=== PATIENT | female | born 1965 | race Two or more races ===

== ENCOUNTER 2019-10-06 10:31 | Day surgery (SDC) | payer OTHER ==
[2019-10-02 14:41] LABS: Basophils # (auto) 0 10 ^3/uL (0-0.2); Basophils % (auto) 0.4 % (0.0-2.0); Eosinophils # (auto) 0.1 10 ^3/uL (0-0.8); Eosinophils % (auto) 2.5 % (0.0-7.0); Hematocrit 40.9 % (36.0-46.0); Hemoglobin 13.4 g/dL (12.2-16.2); Lymphocytes # (auto) 2.1 10 ^3/uL (0.4-5.4); Lymphocytes % (auto) 37.9 % (10.0-50.0); Mean Corpuscular Hemoglobin 30.5 pg (28.0-32.0); Mean Corpuscular Hgb Conc. 32.9 g/dL (32.0-36.0); Mean Corpuscular Volume 92.8 fL (80.0-100.0); Monocytes # (auto) 0.3 10 ^3/uL (0-1.3); Monocytes % (auto) 5.2 % (0.0-12.0); Platelet Count (auto) 216 10^3/uL (140-450); Red Cell Distribution Width 14.7 % (11.8-14.3); White Blood Cell 5.6 10^3/uL (4.4-10.8)
[2019-10-02 14:58] LABS: INR 1.02 (0.9-1.15)
[~2019-10-06] VITALS: Ht 170.2 cm; Wt 69.4 kg
[2019-10-06] MEDS ORDERED: diphenhdrAMINE HCL 50 MG/1 ML VL ONE (11:14)
[2019-10-06] MEDS: fentaNYL CITRATE 100 MCG/2 ML VL ONE ×3 (11:48→11:57)
[2019-10-06] MEDS: MIDAZOLAM HCL 5 MG/ML-1ML VIAL ONE ×3 (11:48→11:57)
[2019-10-06 12:39] VITALS: BP 105/71
== END 2019-10-06 12:09 | disposition home or self-care (01) ==
LOC: GI 10:31
PROVIDERS: ATTEND Internal Medicine Gastroenterology
DX: Z12.11 Encounter for screening for malignant neoplasm of colon (principal); K64.8 Other hemorrhoids; K57.30 Diverticulosis of large intestine without perforation or abscess without bleeding; E11.9 Type 2 diabetes mellitus without complications; Z88.1 Allergy status to other antibiotic agents; Z88.8 Allergy status to other drugs, medicaments and biological substances; Z90.49 Acquired absence of other specified parts of digestive tract; Z98.890 Other specified postprocedural states
CPT/HCPCS: 36415; 45378; 85025; 85610; 85730; J2250; J3010; J7030; 99152

== ENCOUNTER → 2020-03-15 | Day surgery (SDC) | payer OTHER ==
[2020-03-12 08:52] LABS: Basophils # (auto) 0 10 ^3/uL (0-0.2); Basophils % (auto) 0.5 % (0.0-2.0); Eosinophils # (auto) 0.1 10 ^3/uL (0-0.8); Eosinophils % (auto) 2.4 % (0.0-7.0); Hematocrit 42.5 % (36.0-46.0); Hemoglobin 13.9 g/dL (12.2-16.2); Lymphocytes # (auto) 1.6 10 ^3/uL (0.4-5.4); Lymphocytes % (auto) 32.6 % (10.0-50.0); Mean Corpuscular Hemoglobin 30.8 pg (28.0-32.0); Mean Corpuscular Hgb Conc. 32.8 g/dL (32.0-36.0); Mean Corpuscular Volume 93.9 fL (80.0-100.0); Monocytes # (auto) 0.3 10 ^3/uL (0-1.3); Monocytes % (auto) 6.2 % (0.0-12.0); Neutrophils # (auto) 2.9 10 ^3/uL (1.6-8.6); Neutrophils % (auto) 58.3 % (37.0-80.0); Platelet Count (auto) 201 10^3/uL (140-450); Red Blood Cells 4.53 10^6/uL (4.0-5.20)
[2020-03-12 09:09] LABS: INR 0.99 (0.9-1.15); Partial Thromboplastin Time 27.5 sec (23.0-31.2)
[~2020-03-15] VITALS: Ht 170.2 cm; Wt 71.7 kg
[~2020-03-15] MED LIST: FLUMAZENIL 0.1 MG/ML INJ 10ML MDV IV ONE; LIDOCAINE VISCOUS 2% 15ML UD ONE; NALOXONE HCL 0.4 MG/ML VIAL ONE
[2020-03-15] MEDS: fentaNYL CITRATE 100 MCG/2 ML VL ONE ×2 (14:22→14:24)
[2020-03-15] MEDS: MIDAZOLAM HCL 5 MG/ML-1ML VIAL ONE ×3 (14:22→14:25)
[2020-03-15 14:50] VITALS: BP 122/74
== END | disposition home or self-care (01) ==
LOC: GI 10:59
PROVIDERS: ATTEND Internal Medicine Gastroenterology
DX: R10.13 Epigastric pain (principal); K29.50 Unspecified chronic gastritis without bleeding; B96.81 Helicobacter pylori [H. pylori] as the cause of diseases classified elsewhere; Z11.59 Encounter for screening for other viral diseases; Z88.1 Allergy status to other antibiotic agents; Z88.8 Allergy status to other drugs, medicaments and biological substances; Z98.890 Other specified postprocedural states
CPT/HCPCS: 36415; 43239; 82962; 85025; 85610; 85730; 88305; 88342; J2250; J2310; J3010; U0003; 99152

== ENCOUNTER 2020-10-14 13:40 | Emergency (ER) | payer OTHER ==
[~2020-10-14] VITALS: Ht 167.6 cm; Wt 76.7 kg
[2020-10-14] MEDS ORDERED: ONDANSETRON ODT 4 MG TAB PO ONE (14:00)
[2020-10-14] MEDS ORDERED: MORPHINE SULFATE 4 MG/ML SYR/VIAL IV ONE (15:00)
[2020-10-14] MEDS ORDERED: cloNIDine HCL 0.1 MG TAB PO ONE (15:15)
[2020-10-14] MEDS ORDERED: ONDANSETRON HCL 4 MG/2 ML VIAL IV ONE (15:15)
[2020-10-14 15:58] VITALS: BP 141/68
== END 2020-10-14 16:22 | disposition short-term general hospital (02) ==
LOC: ER 13:40
DX: I60.6 Nontraumatic subarachnoid hemorrhage from other intracranial arteries (principal)
CPT/HCPCS: 70450; 72125; 96374; 99285; J2405